=== PATIENT | female | born 1975 | race Caucasian/White ===

== ENCOUNTER 2017-04-02 11:25 | Inpatient (IN) | payer BC ==
[2017-04-01 12:49] LABS: BASOPHILS 0.2 %; BASOPHILS ABSOLUTE 0.01 10/3/uL (0.0-0.16); EOSINOPHILS 0.8 %; EOSINOPHILS ABSOLUTE 0.05 10/3/uL (0.0-0.53); HEMATOCRIT 41.3 % (36.0-48.0); IMMATURE GRANULOCYTES 0.3 %; IMMATURE GRANULOCYTES ABSOLUTE 0.02 10/3/uL (0.0-0.11); LYMPHOCYTES 28.8 %; MANUAL DIFF NO %; MEAN CORPUS HGB CONC 33.9 g/dL (32.0-36.0); MEAN CORPUSCULAR HEMOGLOB 31.3 pg (26.0-34.0); MEAN CORPUSCULAR VOLUME 92.2 fL (80-100); MEAN PLATELET VOLUME 9.6 fL (9.2-13.0); MONOCYTES 4.1 %; MONOCYTES ABSOLUTE 0.27 10/3/uL (0.21-1.20); NEUTROPHILS 65.8 %; NEUTROPHILS ABSOLUTE 4.34 10/3/uL (2.02-8.40); PLATELET COUNT 186 10/3/uL (150-400); RED CELL COUNT 4.48 10/6/uL (4.0-5.6); WHITE BLOOD CELLS 6.6 10/3/uL (4.5-10.5)
[2017-04-01 12:56] LABS: PROTIME (NOT ORD) 13.4 SEC (12.0-14.5)
[2017-04-01 13:09] LABS: A/G RATIO 1.5 (0.7-1.9); ALBUMIN 4.3 G/DL (3.5-5.0); ALKALINE PHOSPHATASE 59 U/L (45-117); BUN (BLOOD UREA NITROGEN) 11 MG/DL (6-23); CALCIUM, SERUM 8.7 MG/DL (8.5-10.4); CHLORIDE, SERUM 108 MMOL/L (96-112); CO2 (CARBON DIOXIDE) 31 MMOL/L (24-34); CREATININE 0.76 MG/DL (0.55-1.02); GFR AFRICAN AMERICAN 115 ML/MIN (>=60); GFR NON AFRICAN AMERICAN 99 ML/MIN (>=60); GLOBULIN 2.9 G/DL (2.5-4.1); GLUCOSE, SERUM 91 MG/DL (60-99); POTASSIUM, SERUM 4.1 MMOL/L (3.5-5.3); SGOT(AST) 18 U/L (5-40); SGPT(ALT) 23 U/L (5-65); SODIUM, SERUM 141 MMOL/L (135-148); TOTAL BILIRUBIN 0.7 MG/DL (0-1.2); TOTAL PROTEIN 7.2 G/DL (6.0-8.5)
[2017-04-01 13:28] LABS: ASCORBIC ACID (UR NOT ORDER) NEG (NEG); BILIRUBIN, URINE NEGATIVE (NEG); KETONE, URINE NEGATIVE (NEG); LEUKOCYTE ESTERASE(NOT OR NEG (NEG); WBC (NOT ORDERED) (RFLEX) < 1 (0-5)
--- NOTE | ~2017-04-02 | OP ---
Record Of Operation [facility] [address] [place]. [address] NAME: ALEXIS STONE : 79 STATUS : ADM IN [facility]#: [id number] AGE: 41 ADM/REG DATE : 04/02/17 MR#: [id number] REPORT SERV DATE: 04/02/17 DICTATED BY: SIMONA GREGORY JR. DATE: 04/02/17 REPORT STATUS : Draft TRANSCRIBED BY: MODPatrick DATE: 04/02/17 DATE OF PROCEDURE: 04/02/2017 PREOPERATIVE DIAGNOSES: Symptomatic pericardial cyst, anxiety disorder, history of anemia of chronic disease, COPD with tobacco abuse, and history of right toe amputation. POSTOPERATIVE DIAGNOSIS: Symptomatic pericardial cyst, anxiety disorder, history of anemia of chronic disease, COPD with tobacco abuse, and history of right toe amputation. NAME OF OPERATION: Bronchoscopy, robotic-assisted right thoracoscopy with complete resection of pericardial cyst, intercostal nerve block. SURGEON: Simona Gregory M.D. RESIDENT SURGEON: Homero Bates MD. TECHNOLOGY ADMINISTRATOR: Rito Schaefer. ANESTHESIA: General endotracheal. FINDINGS: On bronchoscopy, the patient was noted to have no endobronchial lesions. There was no contraindication to proceeding on with surgery. Mucous secretions were evacuated. Upon exploration of the right chest, she had a pericardial cyst with about a 4 mm defect in the pericardium. It was a moderate sized cyst filled with pericardial fluid. There was no significant surrounding inflammation. There were no adhesions. The cyst was excised in its entirety. The opening in the pericardium was left open. There were no other abnormalities noted. DETAILS OF OPERATION: After adequate general anesthesia, the patient was intubated. Bronchoscopy was performed noting no endobronchial lesions or contraindications to resection. A left-sided double-lumen endotracheal tube was then placed. The patient was then positioned in the supine position where the right chest was elevated. The chest was prepped and draped in a routine sterile fashion. Under direct visualization with a 5 mm camera, trocar was introduced in the lateral position of the right chest. The lung was not adherent to the chest cavity. The chest was then insufflated to 8 cm of pressure. Two remaining trocars were then placed. Da Raul was docked. Instruments were placed under direct visualization. Pericardial cyst was then identified. It was excised along with the pericardial fat in its entirety. Electrocautery and blunt dissection was utilized. Some of the vasculature going to the cyst was clipped with standard clips with the vessel fulgurated with electrocautery. Once the cyst was entirely resected, it was placed within the specimen bag and withdrawn through the existing trocar site. Adequate hemostasis was obtained. The remainder of the chest was fully explored, noting no other abnormalities. An NG tube was placed to remove the CO2 from the chest cavity. The lung was reinflated. The trocar sites were closed with running Vicryl sutures. The skin was closed with running monofilament suture. A Dermabond dressing was applied and the procedure was terminated at this point. An intercostal nerve block was performed with ropivacaine. The procedure was terminated at Record Of Operation [address] [address] NAME: ALEXIS STONE : 79 STATUS : ADM IN [facility]#: [id number] AGE: 41 ADM/REG DATE : 04/02/17 MR#: [id number] REPORT SERV DATE: 04/02/17 DICTATED BY: SIMONA GREGORY JR. DATE: 04/02/17 REPORT STATUS : Draft TRANSCRIBED BY: MARIBEL DATE: 04/02/17 this point. The patient tolerated the procedure well and taken back to the recovery room in stable condition. ROSINA/MARIBEL Simona Gregory Jr., M.D. / [id number] CC: Luly Kahn Jr., M.D.
[~2017-04-02 11:25] MED LIST: ATIVAN2 MG PO; LEXAPRO20 PO; MELATONIN5 M1 PO; NORCO1 TAB PO; ZANTAC300 MG PO
[2017-04-03 05:11] LABS: BASOPHILS 0 %; EOSINOPHILS 0 %; HEMATOCRIT 38.9 % (36.0-48.0); HEMOGLOBIN 13.2 g/dL (12.0-16.0); IMMATURE GRANULOCYTES 0.2 %; IMMATURE GRANULOCYTES ABSOLUTE 0.03 10/3/uL (0.0-0.11); LYMPHOCYTES 3.1 %; LYMPHOCYTES ABSOLUTE 0.44 10/3/uL (0.67-4.30); MEAN CORPUS HGB CONC 33.9 g/dL (32.0-36.0); MEAN CORPUSCULAR HEMOGLOB 31.7 pg (26.0-34.0); MEAN CORPUSCULAR VOLUME 93.5 fL (80-100); MEAN PLATELET VOLUME 9.8 fL (9.2-13.0); MONOCYTES ABSOLUTE 0.43 10/3/uL (0.21-1.20); NEUTROPHILS 93.7 %; NEUTROPHILS ABSOLUTE 13.24 10/3/uL (2.02-8.40); PLATELET COUNT 195 10/3/uL (150-400); RBC DISTRIBUTION WIDTH 12.7 % (12.0-16.0); RED CELL COUNT 4.16 10/6/uL (4.0-5.6)
[2017-04-03 05:12] LABS: WHITE BLOOD CELLS 14.1 10/3/uL (4.5-10.5)
[2017-04-03 05:13] LABS: MANUAL DIFF NO %
[2017-04-03 05:17] LABS: BUN (BLOOD UREA NITROGEN) 9 MG/DL (6-23); CALCIUM, SERUM 8.7 MG/DL (8.5-10.4); CHLORIDE, SERUM 107 MMOL/L (96-112); CREATININE 0.86 MG/DL (0.55-1.02); GFR AFRICAN AMERICAN 99 ML/MIN (>=60); GFR NON AFRICAN AMERICAN 85 ML/MIN (>=60); POTASSIUM, SERUM 3.9 MMOL/L (3.5-5.3); SODIUM, SERUM 140 MMOL/L (135-148)
[2017-04-03 05:19] LABS: CO2 (CARBON DIOXIDE) 25 MMOL/L (24-34); GLUCOSE, SERUM 177 MG/DL (60-99)
[2017-04-03] MEDS ORDERED: PCET PO (10:02)
== END 2017-04-03 11:17 | disposition home or self-care (01) | DRG 272 ==
LOC: SDC/OF 11:25 → PACU 16:07 → 5NO 19:28
PROVIDERS: Thoracic Surgery (Cardiothoracic Vascular Surgery)
PROC: 02BN4ZZ Excision of Pericardium, Percutaneous Endoscopic Approach (ICD-10-PCS; 2017-04-02)
PROC: 3E0T3BZ Introduction of Anesthetic Agent into Peripheral Nerves and Plexi, Percutaneous Approach (ICD-10-PCS; 2017-04-02)
PROC: 0BJ08ZZ Inspection of Tracheobronchial Tree, Via Natural or Artificial Opening Endoscopic (ICD-10-PCS; principal; 2017-04-02 12:30)
DX: I31.8 Other specified diseases of pericardium (principal); Z99.81 Dependence on supplemental oxygen; J44.9 Chronic obstructive pulmonary disease, unspecified; D63.8 Anemia in other chronic diseases classified elsewhere; F41.9 Anxiety disorder, unspecified; F17.210 Nicotine dependence, cigarettes, uncomplicated; G47.33 Obstructive sleep apnea (adult) (pediatric)
CPT/HCPCS: 36415; 71020; 80048; 80053; 81001; 82330; 82803; 82947; 82962; 83036; 84132; 84295; 84703; 85014; 85025; 85610; 86850; 86900; 86901; 86920; 87641; 88305; 93005; 94640; A9270-GY; C1781; J0690; J1170; J1885; J2250; J2370; J2405; J2710; J2795; J3010; J3370